=== PATIENT | male | born 1985 | race Caucasian/White ===

== ENCOUNTER → 2018-10-08 | Outpatient (REF) | payer OTHER | LOC: M SFHCLERA 10:44 | PROVIDERS: ATTEND Nurse Practitioner Family | DX: J02.9 Acute pharyngitis, unspecified (principal) ==

== ENCOUNTER → 2021-02-22 | Outpatient (CLI) | payer OTHER ==
--- NOTE | 2021-02-23 15:14 | SLEEPCENT ---
NOCTURNAL POLYSOMNOGRAPHY CPAP TITRATION DATE: 02/22/2021 ORDERED BY: DONI Valverde Nocturnal polysomnography was performed for the retitration of pressure therapy in this patient with obstructive sleep apnea syndrome with apnea-hypopnea index of 30.6. For testing a ResMed AirFit F20 full face mask of medium size was used, 4 cm of water pressure were applied to the circuit, and the lights were extinguished. 7 hours and 52 minutes of data were reviewed. There were 347.5 minutes of sleep identified. Sleep latency was mildly prolonged at 20.5 minutes. REM latency was normal at 98 minutes. Sleep architecture was fair. There was some fragmentation in the mid portion of the study. Overall sleep efficiency was 74.3%. There were two REM cycles noted. The electrocardiogram showed a sinus rhythm throughout with an average heart rate of 80 beats per minute; rate range 60 to 100. EEG showed normal waveforms for wake and sleep. Respiratory events were fully palliated with CPAP at a pressure of 11 and remaining measures of sleep physiology were normal. IMPRESSION: Obstructive sleep apnea syndrome (G47.33). RECOMMENDATION: Nightly use of pressure therapy 11 cm of water.
== END ==
LOC: M SLEEP 20:00
PROVIDERS: ATTEND Nurse Practitioner Family
DX: G47.33 Obstructive sleep apnea (adult) (pediatric) (principal)